=== PATIENT | male | born 1960 | race Caucasian/White ===

== ENCOUNTER 2019-11-12 18:54 | Emergency (ER) | payer MEDICAID ==
[~2019-11-12] VITALS: Ht 170.2 cm; Wt 77.1 kg
[2019-11-12 19:15] VITALS: BP 146/98
--- NOTE | 2019-11-12 19:25 | NUR ---
PT WALKED TO LOBBY WITH STEADY GAIT.
--- NOTE | 2019-11-12 19:36 | NUR ---
pt ambulated to [facility].
--- NOTE | 2019-11-12 19:55 | NUR ---
Dr. Randall is evaluating the patient at bedside.
--- NOTE | 2019-11-12 19:56 | NUR ---
59 Y/O M BIB EMS C/O POSSIBLE ETOH. PT AAO X4. RR EVEN AND UNLABORED. SKING WARM AND DRY TO TOUCH. PT ALSO C/O PAIN BEHIND HIS LEFT NECK 09/13, PER PT, PAIN IS CHRONIC. PT SITTING IN CHAIR A. WILL CONTINUE TO MONITOR. PMH: COPD ALLERGIES: CODEINE
[2019-11-12 20:18] VITALS: BP 146/98
--- NOTE | 2019-11-12 20:18 | NUR ---
Patient discharged with v/s stable. Written and verbal after care instructions given and explained. Patient verbalized understanding. Ambulatory with steady gait. All questions addressed prior to discharge. Advised to follow up with PMD.
== END 2019-11-12 20:18 | disposition home or self-care (01) ==
LOC: MED 18:54
DX: M54.2 Cervicalgia (principal); J44.9 Chronic obstructive pulmonary disease, unspecified; Z88.6 Allergy status to analgesic agent; Z02.89 Encounter for other administrative examinations
CPT/HCPCS: 99283

== ENCOUNTER 2019-11-20 10:18 | Emergency (ER) | payer MEDICAID ==
[~2019-11-20] VITALS: Ht 177.8 cm; Wt 83.9 kg
--- NOTE | 2019-11-20 10:28 | NUR ---
Patient ambulated to bed 2. RN evaluating patient at bedside.
[2019-11-20 10:33] VITALS: BP 153/98
[2019-11-20] MEDS ORDERED: NACL 0.9% 1,000 ML IV ONE (10:40)
--- NOTE | 2019-11-20 10:41 | NUR ---
59 YO MALE CO HEAT EXHAUSTION. PT IS HOMELESS AND STATED THAT HE WAS GETTING HOT FROM BEING OUTSIDE. PT IS DIAPHORETIC. PT DENIES ANY LOC OR DIZZINESS. PHM- COPD
[2019-11-20 11:51] VITALS: BP 133/87
== END 2019-11-20 11:53 | disposition home or self-care (01) ==
LOC: MED 10:18
DX: E86.0 Dehydration (principal); X30.XXXA Exposure to excessive natural heat, initial encounter; Y93.89 Activity, other specified; Y92.89 Other specified places as the place of occurrence of the external cause; Y99.8 Other external cause status
CPT/HCPCS: 96360; 99283; J7030

== ENCOUNTER 2019-12-01 18:23 | Emergency (ER) | payer MEDICAID ==
[~2019-12-01] VITALS: Ht 152.4 cm; Wt 78.0 kg
[2019-12-01 18:25] VITALS: BP 154/101
[2019-12-01] MEDS ORDERED: NACL 0.9% 1,000 ML IV ONE (18:40)
[2019-12-01 19:04] LABS: BASOPHILS # (AUTO) 0.1 K/uL (0.00-0.22); BASOPHILS % (AUTO) 0.9 % (0.0-2.0); EOSINOPHILS % (AUTO) 0.2 % (0.0-4.0); HEMATOCRIT 46.3 % (36-52); HEMOGLOBIN 15.3 g/dL (12.0-18.0); LYMPHOCYTES # (AUTO) 1.1 K/uL (2.0-11.5); LYMPHOCYTES % (AUTO) 8.8 % (20.5-51.1); MEAN CORPUSCULAR HEMOGLOBIN 30 pg (27-31); MEAN CORPUSCULAR HGB CONC 33 g/dL (33-37); MEAN CORPUSCULAR VOLUME 91.3 fL (80-94); MONOCYTES # (AUTO) 0.8 K/uL (0.8-1.0); MONOCYTES % (AUTO) 6.3 % (1.7-9.3); NEUTROPHILS # (AUTO) 10.7 K/uL (1.8-7.7); NEUTROPHILS % (AUTO) 83.8 % (42.2-75.2); PLATELET COUNT (AUTO) 380 K/uL (140-450); RED BLOOD CELL COUNT(AUTO) 5.07 MIL/uL (4.20-6.10); RED CELL DISTRIBUTION WIDTH 14.1 % (11.6-13.7); WHITE BLOOD COUNT (AUTO) 12.8 K/uL (4.8-10.8)
[2019-12-01 19:14] LABS: ALBUMIN 4.2 g/dL (3.4-5.0); ANION GAP 17.4 (8-16); CARBON DIOXIDE 23.6 mmol/L (21-32); CREATININE 1.9 mg/dL (0.6-1.3); TOTAL BILIRUBIN 1.3 mg/dL (0.0-1.0)
[2019-12-01 20:02] VITALS: BP 154/101
== END 2019-12-01 20:03 | disposition home or self-care (01) ==
LOC: MED 18:23
DX: E86.0 Dehydration (principal); R19.7 Diarrhea, unspecified; J44.9 Chronic obstructive pulmonary disease, unspecified; Z88.6 Allergy status to analgesic agent
CPT/HCPCS: 36415; 80053; 85025; 96360; 99283; J7030

== ENCOUNTER 2020-03-05 00:35 | Emergency (ER) | payer MEDICAID ==
[~2020-03-05] VITALS: Ht 177.8 cm; Wt 79.4 kg
[2020-03-05 00:45] VITALS: BP 111/66
[2020-03-05] MEDS ORDERED: NACL 0.9% 1,000 ML IV ONE (01:15)
[2020-03-05] MEDS ORDERED: ONDANSETRON 4 MG/2 ML VIAL IVP ONE (01:15)
--- NOTE | 2020-03-05 01:20 | NUR ---
PT TAKEN TO BED 10 WITH STEADY GAIT.
--- NOTE | 2020-03-05 01:20 | NUR ---
PT 60 Y/O MALE BIB SELF FOR C/O DIARRHEA X 3 DAYS. PER PT X 1 EPISODE OF N/V UPON ARRIVAL OF ED. PT ALERT AND ORIENTED X 3. PT REORIENTED TO TIME. PT STATES, " I'VE HAD A LOT OF EPISODES OF DIARRHEA FOR THREE DAYS AND I JUST THREW UP IN THE LOBBY." PT DENIES ABD PAIN. ABD IS ROUND, SOFT, AND NON-TENDER TO TOUCH. PT DENIES PAIN/ BURNING UPON URINATION. RESPIRATIONS ARE EVEN AND UNLABORED. SKIN IS WARM AND DRY TO TOUCH. PT ON CARDIAC MONTIOR. VSS. MEDHX: COPD ALLERGIES: CODEINE.
--- NOTE | 2020-03-05 01:33 | NUR ---
ACCUCKECK: 120
--- NOTE | 2020-03-05 01:39 | NUR ---
ATTEMPTED TO HAVE IV PLACED. PT REFUSED ADDITIONAL IV PLACEMENT ATTEPMTS. PT STATES, "I'M LEAVING I DONT WANT YOU TO TREAT ME ANYMORE, I'M LEAVING."
[2020-03-05] MEDS ORDERED: ONDANSETRON 4 MG ODT PO ONE (01:40)
--- NOTE | 2020-03-05 01:40 | NUR ---
ATTEMPTED TO EXPLAIN RISKS AND BENEFITS OF IV PLACEMENT. PT REFUSED TO HAVE FURTHER ATTEMPS OF IV PLACEMENT, OR LABS DRAWN. ERMD MADE AWARE AND GAVE NEW ORDER FOR ZOFRAN ODT.
--- NOTE | 2020-03-05 01:41 | NUR ---
PT REFUSED TO GIVE UA. Addendum: 03/05/20 at 0232 by [email or web address] *PT REFUSED TO PROVIDE UA. RIAZ MADE AWARE.
--- NOTE | 2020-03-05 01:42 | NUR ---
Samuel harris in [facility] - 03/05/20 at 0232 by [email or web address] RIAZ MADE AWARE.
--- NOTE | 2020-03-05 01:48 | NUR ---
PT GIVEN RX OF ZOFRAN ODT TO PT. PATIENT ELOPED FROM FACILITY. DISCHARGE INSTRUCTIONS NOT GIVEN TO PATIENT. NOTIFIED.
[2020-03-05 01:50] VITALS: BP 111/66
== END 2020-03-05 01:48 | disposition left against medical advice (07) ==
LOC: MED 00:35
DX: R19.7 Diarrhea, unspecified (principal); J44.9 Chronic obstructive pulmonary disease, unspecified; Z88.5 Allergy status to narcotic agent; Z53.21 Procedure and treatment not carried out due to patient leaving prior to being seen by health care provider
CPT/HCPCS: 82948; 99283; J2405; Q0162

== ENCOUNTER 2021-10-21 13:54 | Emergency (ER) | payer MEDICAID ==
[~2021-10-21] VITALS: Ht 172.7 cm; Wt 74.8 kg
[2021-10-21 14:00] VITALS: BP 120/88
--- NOTE | 2021-10-21 14:32 | NUR ---
Patient does not wish to proceed with medical care recommended by [facility]. Patient given information related to possible complications, up to and including , which could occur as a result of leaving hospital at this time. Patient verbalizes understanding of risks involved leaving against medical advice. Patient has signed AMA form.
== END 2021-10-21 14:32 | disposition left against medical advice (07) ==
LOC: MED 13:54
DX: R53.83 Other fatigue (principal); R53.1 Weakness; Z53.21 Procedure and treatment not carried out due to patient leaving prior to being seen by health care provider